=== PATIENT | female | born 1965 | race African-American/Black ===

== ENCOUNTER 2017-02-06 09:45 | Day surgery (SDC) | payer BC ==
--- NOTE | 2017-02-06 10:25 | PCM.PREANE ---
Preanesthetic Assessment - Anesthesia/Transfusion/Family Hx Anesthesia History: Prior Anesthesia Without Reaction Family History of Anesthesia Reaction: No Transfusion History: Prior Transfusion Without Reaction Intubation History: Unknown - Review of Systems General: No Symptoms Cardiovascular: No Symptoms Gastrointestinal: No symptoms Neurological: No Symptoms Other: Reports: None - Physical Assessment Height: 1.6 m Weight: 80.739 kg ASA Class: 2 Mental Status: Alert & Oriented x3 Airway Class: Mallampati = 2 Dentition: Reports: Normal Dentition Thyro-Mental Finger Breadths: 3 Mouth Opening Finger Breadths: 3 ROM/Head Extension: Full Lungs: Clear to auscultation, Normal respiratory effort Cardiovascular: Regular Rate, Regular Rhythm - Lab Values: Laboratory Last Values WBC 7.71 K/uL (4.0-11.0) 02/06/17 10:12 RBC 4.29 M/uL (4.30-5.90) L 02/06/17 10:12 Hgb 13.0 g/dL (12.0-16.0) 02/06/17 10:12 Hct 38.7 % (36.0-46.0) 02/06/17 10:12 MCV 90.2 fL (80.0-98.0) 02/06/17 10:12 MCH 30.3 pg (27.0-32.0) 02/06/17 10:12 MCHC 33.6 g/dL (31.0-37.0) 02/06/17 10:12 RDW Std Deviation 44.4 fl (28.0-62.0) 02/06/17 10:12 RDW Coeff of Chaz 14 % (11.0-15.0) 02/06/17 10:12 Plt Count 296 K/uL (150-400) 02/06/17 10:12 MPV 10.00 fL (7.40-12.00) 02/06/17 10:12 Neut % (Auto) 45.3 % (48.0-80.0) L 02/06/17 10:12 Lymph % (Auto) 48.1 % (16.0-40.0) H 02/06/17 10:12 [place] % (Auto) 4.2 % (0.0-15.0) 02/06/17 10:12 Eos % (Auto) 1.9 % (0.0-7.0) 02/06/17 10:12 Baso % (Auto) 0.5 % (0.0-1.5) 02/06/17 10:12 Neut # (Auto) 3.5 K/uL (1.4-5.7) 02/06/17 10:12 Lymph # (Auto) 3.7 K/uL (0.6-2.4) H 02/06/17 10:12 [place] # (Auto) 0.3 K/uL (0.0-0.8) 02/06/17 10:12 Eos # (Auto) 0.2 K/uL (0.0-0.7) 02/06/17 10:12 Baso # (Auto) 0.0 K/uL (0.0-0.1) 02/06/17 10:12 Nucleated RBC % 0.0 /100WBC 02/06/17 10:12 Nucleated RBCs # 0 K/uL 02/06/17 10:12 - Allergies Allergies/Adverse Reactions: Allergies Allergy/AdvReac Type Severity Reaction Status Date / Time No Known Allergies Allergy Verified 10/09/14 13:10 - Blood Blood Available: No - Anesthesia Plan Pre-Op Medication Ordered: None - Acknowledgements Anesthesia Type Planned: General Anesthesia Pt an Appropriate Candidate for the Planned Anesthesia: Yes Alternatives and Risks of Anesthesia Discussed w Pt/Guardian: Yes Pt/Guardian Understands and Agrees with Anesthesia Plan: Yes PreAnesthesia Questionnaire HEENT History: Reports: Other (See Below) Other HEENT History: wears glasses Cardiovascular History: Reports: Hypertension Gastrointestinal History: Reports: None Genitourinary History: Reports: None 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 , Psychiatric History: Reports: Depression Endocrine/Metabolic History: Reports: Obesity/BMI 30+ Hematologic History: Reports: Blood Transfusion(s) Other Hematologic History: had blood transfusion prior to hysterectomy - Past Surgical History Head Surgeries/Procedures: Reports: None GI Surgical History: Reports: Cholecystectomy Female Surgical History: Reports: D&C, Hysterectomy, Tubal Ligation Other Female Surgeries/Procedures: laparoscopy for ectopic - SUBSTANCE USE Smoking Status *Q: Never Smoker Second Hand Smoke Exposure: No Days Per Week of Alcohol Use: 0 Recreational Drug Use History: No - HOME MEDS Home Medications: Home Meds amLODIPine [Norvasc] 5 mg PO BEDTIME 02/12/15 [History]
[2017-02-06] MEDS ORDERED: Ondansetron 4 MG/2 ML SDV ONE (10:27)
[2017-02-06] MEDS ORDERED: Midazolam 1 MG/ML 2 ML SDV ONE (10:27)
[2017-02-06] MEDS ORDERED: Propofol 200 MG/20 ML SDV ONE (10:27)
[2017-02-06] MEDS ORDERED: fentaNYL 250 MCG/5 ML SDV ONE (10:28)
[2017-02-06] MEDS ORDERED: Dexamethasone 4 MG/ML 5 ML MDV ONE (11:15)
[2017-02-06] MEDS ORDERED: fentaNYL 100 MCG/2 ML SDV IVPUSH PRN (11:32)
[2017-02-06] MEDS ORDERED: Ketorolac 30 MG/ML SDV ONE (11:32)
[2017-02-06] MEDS ORDERED: ePHEDrine 50 MG/ML SDV ONE (11:39)
[2017-02-06] MEDS ORDERED: Acetaminophen/oxyCODONE 325-5 MG Tab PO PRN (12:09)
--- NOTE | 2017-02-06 12:19 | PCM.OPNOTE ---
- General Post-Op/Procedure Note Date of Surgery/Procedure: 02/06/17 Operative Procedure(s): Left Labia minora reduction Pre Op Diagnosis: Hypertrophy of left labia minora Post-Op Diagnosis: Same Anesthesia Technique: General LMA Primary Surgeon: Waleska Casey Pathology: Excised Labia minor skin EBL in mLs: 5 Complications: None Condition: Good
[2017-02-06] MEDS ORDERED: Bupivacaine 0.25% 10 ML SDV ONE (12:37)
[2017-02-06 13:45] VITALS: BP 106/62
--- NOTE | 2017-02-06 14:01 | PCM48HPAN ---
Post Anesthesia Note - EVALUATION WITHIN 48HRS OF ANESTHETIC Vital Signs in Normal Range: Yes Patient Participated in Evaluation: Yes Respiratory Function Stable: Yes Airway Patent: Yes Cardiovascular Function Stable: Yes Hydration Status Stable: Yes Pain Control Satisfactory: Yes Nausea and Vomiting Control Satisfactory: Yes Mental Status Recovered: Yes
--- NOTE | 2017-02-06 23:48 | OR ---
SURGEON: Waleska Casey MD DATE OF PROCEDURE: 02/06/2017 PREOPERATIVE DIAGNOSIS: Left labia hypertrophy. POSTOPERATIVE DIAGNOSIS: Left labia hypertrophy. PROCEDURE: Reduction of left labium minora. ANESTHESIA: General, LMA. ESTIMATED BLOOD LOSS: 5 mL. IV FLUIDS: 1200 mL. COMPLICATIONS: None. FINDINGS: Hypertrophied left labia minora. BRIEF HISTORY: The patient is a 51-year-old, postmenopausal lady who at her routine annual examination complained of having of vulvar "tag" which had been present for a while but in recent times had become more irritating and catching on her underwear and she would like it removed. Examination did reveal hypertrophied left labia minora which was hanging at least 2 cm down compared to her right labial minora. The patient was counseled that this would have to be done under anesthesia , risks of bleeding, infection, and then also the cosmetics, bearing in mind that that labia would not look the same as the right side. The patient consented to proceed. PROCEDURE DETAILS: The patient was taken to the operating room, where she was placed in the dorsal supine position and SCDs in place. Induction of general anesthesia was performed without difficulty. After appropriate level of anesthesia was reached, she was then placed in dorsal lithotomy position, prepped and draped in the normal sterile fashion for vaginal surgery. Appropriate time-out was held. Examination under anesthesia confirmed the above findings and the area that was going to be excised off the left labia was then marked out with a marking pen making sure that it was approximately at the same level as the right labia minora. This area was then excised in a elliptical fashion and the redundant skin removed and sent off to pathology. The area was then closed with multiple interrupted stitches using 3-0 Vicryl sutures. The area was hemostatic post repair. It was then infiltrated with 0.25% Marcaine. The area was covered Surgicel, acting as a barrier dressing for the next 24 hours. The patient tolerated the procedure well. Sponge, instrument, and needle counts were correct at the end of the procedure. She was taken to the recovery room in stable condition. YONNY / SULEMA /[id number] STACI
== END 2017-02-06 14:03 | disposition home or self-care (01) ==
LOC: MW.SDS 09:45
PROVIDERS: ATTEND Obstetrics & Gynecology
DX: N90.60 Unspecified hypertrophy of vulva (principal); N95.8 Other specified menopausal and perimenopausal disorders; I10 Essential (primary) hypertension; Z98.51 Tubal ligation status; Z98.890 Other specified postprocedural states; Z79.899 Other long term (current) drug therapy
CPT/HCPCS: 36415; 56620; 85025; J1100; J1885; J2250; J2405; J3010; 00940; 88305; J2704

== ENCOUNTER 2017-09-18 09:44 | Emergency (ER) | payer BC ==
[2017-09-18] MEDS ORDERED: Acetaminophen 325 MG Tab PO ONE (09:48)
[2017-09-18] MEDS ORDERED: Sodium Chloride 0.9% 1,000 ML IV ONE ×2 (09:48→12:13)
--- NOTE | 2017-09-18 09:51 | EDM.PDOC ---
ED HPI GENERAL MEDICAL PROBLEM - General Stated Complaint: AMBULANCE Time Seen by Provider: 09/18/17 09:47 - History of Present Illness INITIAL COMMENTS - FREE TEXT/NARRATIVE: HISTORY AND PHYSICAL: History of present illness: Patient 51-year-old black female with history of hypertension who states she's been ill for approximately 1 week with viral type symptoms including cough decreased appetite poor oral intake and generalized weakness that has progressed today to the point prompted a call to ambulance due to the profound weakness. She denies shortness of breath or chest pain Review of systems: As per history of present illness and below otherwise all systems reviewed and negative. Past medical history: As per history of present illness and as reviewed below otherwise noncontributory. Surgical history: As per history of present illness and as reviewed below otherwise noncontributory. Social history: No reported history of drug or alcohol abuse. Family history: As per history of present illness and as reviewed below otherwise noncontributory. Physical exam: HEENT: Atraumatic, normocephalic, pupils reactive, negative for conjunctival pallor or scleral icterus, mucous membranes dry, throat clear, neck supple, nontender, trachea midline. Lungs: Clear to auscultation, breath sounds equal bilaterally, chest nontender. Heart: S1S2, regular, negative for clicks, rubs, or JVD. Abdomen: Soft, nondistended, nontender. Negative for masses or hepatosplenomegaly. Negative for costovertebral tenderness. Pelvis: Stable nontender. Genitourinary: Deferred. Rectal: Deferred. Extremities: Atraumatic, negative for cords or calf pain. Neurovascular unremarkable. Neuro: Awake, alert, oriented. Cranial nerves II through XII unremarkable. Cerebellum unremarkable. Motor and sensory unremarkable throughout. Exam nonfocal. Diagnostics: CBC CMP troponin chest x-ray EKG influenza screen UA urine culture blood culture 2 rapid strep Therapeutics: saline 1 L bolus Tylenol 1 g by mouth Impression: #1 Acute febrile illness Definitive disposition and diagnosis as appropriate pending reevaluation and review of above. 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 , Psychiatric History: Reports: Depression Endocrine/Metabolic History: Reports: Obesity/BMI 30+ Hematologic History: Reports: Blood Transfusion(s) Other Hematologic History: had blood transfusion prior to hysterectomy - Past Surgical History Head Surgeries/Procedures: Reports: None GI Surgical History: Reports: Cholecystectomy Female Surgical History: Reports: D&C, Hysterectomy, Tubal Ligation Other Female Surgeries/Procedures: laparoscopy for ectopic Social & Family History - Tobacco Use Smoking Status *Q: Never Smoker Second Hand Smoke Exposure: No - Alcohol Use Days Per Week of Alcohol Use: 0 - Recreational Drug Use Recreational Drug Use: No ED ROS GENERAL - Review of Systems Review Of Systems: ROS reveals no pertinent complaints other than HPI. ED EXAM, GENERAL - Physical Exam Exam: See Below (See dictation) Course - Vital Signs Last Recorded V/S: Last Vital Signs Temp 38.4 C H 09/18/17 11:26 Pulse 116 H 09/18/17 09:58 Resp 20 09/18/17 09:58 BP 142/83 H 09/18/17 09:58 Pulse Ox 96 09/18/17 09:58 - Orders/Labs/Meds Orders: Active Orders 24 hr Category Date Time Status EKG Documentation Completion [RC] STAT Care 09/18/17 09:48 Active Pulse Oximetry [RC] ASDIRECTED Care 09/18/17 09:48 Active Chest 2V [CR] Stat Exams 09/18/17 09:48 Taken CULTURE BLOOD [BC] Stat Lab 09/18/17 10:00 Received CULTURE BLOOD [BC] Stat Lab 09/18/17 10:00 Received CULTURE STREP A CONFIRMATION [RM] Stat Lab 09/18/17 10:00 Results CULTURE URINE [RM] Stat Lab 09/18/17 11:51 Received STREP SCRN A RAPID W CULT CONF [RM] Stat Lab 09/18/17 10:00 Results Sodium Chloride 0.9% [Normal Saline] 1,000 ml Med 09/18/17 12:13 Active IV .Bolus Blood Culture x2 Reflex Set [OM.PC] Stat Oth 09/18/17 09:48 Ordered Medication Orders Sodium Chloride (Normal Saline) 1,000 mls @ 999 mls/hr IV .Bolus ONE Stop: 09/18/17 13:13 Last Admin: 09/18/17 12:14 Dose: 999 mls/hr Labs: Laboratory Tests 09/18/17 09/18/17 09/18/17 Range/Units 10:00 10:00 11:51 WBC 6.82 (4.0-11.0) K/uL RBC 4.36 (4.30-5.90) M/uL Hgb 13.0 (12.0-16.0) g/dL Hct 39.3 (36.0-46.0) % MCV 90.1 (80.0-98.0) fL MCH 29.8 (27.0-32.0) pg MCHC 33.1 (31.0-37.0) g/dL RDW Std Deviation 45.1 (28.0-62.0) fl RDW Coeff of Chaz 14 (11.0-15.0) % Plt Count 259 (150-400) K/uL MPV 10.20 (7.40-12.00) fL Neut % (Auto) 68.6 (48.0-80.0) % Lymph % (Auto) 22.0 (16.0-40.0) % [place] % (Auto) 9.1 (0.0-15.0) % Eos % (Auto) 0.0 (0.0-7.0) % Baso % (Auto) 0.3 (0.0-1.5) % Neut # (Auto) 4.7 (1.4-5.7) K/uL Lymph # (Auto) 1.5 (0.6-2.4) K/uL [place] # (Auto) 0.6 (0.0-0.8) K/uL Eos # (Auto) 0.0 (0.0-0.7) K/uL Baso # (Auto) 0.0 (0.0-0.1) K/uL Nucleated RBC % 0.0 /100WBC Nucleated RBCs # 0 K/uL Sodium 140 (136-146) mmol/L Potassium 3.6 (3.5-5.1) mmol/L Chloride 103 (98-110) mmol/L Carbon Dioxide 25 (21-31) mmol/L BUN 9 (6.0-23.0) mg/dL Creatinine 0.8 (0.6-1.5) mg/dL Est Cr Clr Drug Dosing 74.86 mL/min Estimated GFR (MDRD) > 60.0 ml/min Glucose 112 H (60-110) mg/dL Calcium 9.2 (8.8-10.8) mg/dL Total Bilirubin 0.7 (0.1-1.5) mg/dL AST 43 H (5-40) IU/L ALT 40 (8-54) IU/L Alkaline Phosphatase 103 (40-150) Troponin I < 0.10 (0.0-0.29) NG/ML Total Protein 8.0 (6.0-8.0) g/dL Albumin 4.1 (3.5-5.0) g/dL Globulin 3.9 H (2.0-3.5) g/dL Albumin/Globulin Ratio 1.1 L (1.3-2.8) Urine Color YELLOW Urine Appearance CLEAR Urine pH 6.5 (5.0-8.0) Ur Specific [place] 1.010 (1.001-1.035) Urine Protein NEGATIVE (NEGATIVE) mg/dL Urine Glucose (UA) NEGATIVE (NEGATIVE) mg/dL Urine Ketones NEGATIVE (NEGATIVE) mg/dL Urine Occult Blood NEGATIVE (NEGATIVE) Urine Nitrite NEGATIVE (NEGATIVE) Urine Bilirubin NEGATIVE (NEGATIVE) Urine Urobilinogen 1.0 (<2.0) EU/dL Ur Leukocyte Esterase NEGATIVE (NEGATIVE) Urine RBC 0-2 (0-2/HPF) Urine WBC 0-1 (0-5/HPF) Ur Epithelial Cells FEW (NONE-FEW) Urine Bacteria FEW (NEGATIVE) Meds: Medications Generic Name Dose Route Start Last Admin Trade Name Freq PRN Reason Stop Dose Admin Sodium Chloride 1,000 mls @ 999 mls/hr 09/18/17 12:13 09/18/17 12:14 Normal Saline IV 09/18/17 13:13 999 mls/hr .Bolus ONE Administration Discontinued Medications Generic Name Dose Route Start Last Admin Trade Name Freq PRN Reason Stop Dose Admin Acetaminophen 1,000 mg 09/18/17 09:48 09/18/17 10:09 Tylenol PO 09/18/17 09:49 Not Given NOW ONE Acetaminophen Confirm 09/18/17 10:02 09/18/17 10:07 Tylenol Extra Strength Administered 09/18/17 10:03 Not Given Dose 1,000 mg .ROUTE .STK-MED ONE Acetaminophen 1,000 mg 09/18/17 10:07 09/18/17 10:08 Tylenol Extra Strength PO 09/18/17 10:08 1,000 mg ONETIME ONE Administration Sodium Chloride 1,000 mls @ 999 mls/hr 09/18/17 09:48 09/18/17 10:11 Normal Saline IV 09/18/17 10:48 999 mls/hr STAT ONE Administration Ibuprofen 400 mg 09/18/17 11:22 09/18/17 11:26 Motrin PO 09/18/17 11:23 400 mg ONETIME ONE Administration Departure - Departure Time of Disposition: 12:30 Disposition: Home, Self-Care 01 Condition: Good Clinical Impression: Fever, Pneumonia - Discharge Information Additional Instructions: The following information is given to patients seen in the emergency department who are being discharged to home. This information is to outline your options for follow-up care. We provide all patients seen in our emergency department with a follow-up referral. The need for follow-up, as well as the timing and circumstances, are variable depending upon the specifics of your emergency department visit. If you don't have a primary care physician on staff, we will provide you with a referral. We always advise you to contact your personal physician following an emergency department visit to inform them of the circumstance of the visit and for follow-up with them and/or the need for any referrals to a consulting specialist. The emergency department will also refer you to a specialist when appropriate. This referral assures that you have the opportunity for followup care with a specialist. All of these measure are taken in an effort to provide you with optimal care, which includes your followup. Under all circumstances we always encourage you to contact your private physician who remains a resource for coordinating your care. When calling for followup care, please make the office aware that this follow-up is from your recent emergency room visit. If for any reason you are refused follow-up, please contact the [facility] emergency department at and asked to speak to the emergency department charge nurse. Levaquin as prescribed push fluids Motrin/Tylenol as directed follow-up primary medical doctor one to 2 days return as needed as discussed - My Orders Last 24 Hours: My Active Orders 09/18/17 09:48 EKG Documentation Completion [RC] STAT Pulse Oximetry [RC] ASDIRECTED Chest 2V [CR] Stat Blood Culture x2 Reflex Set [OM.PC] Stat 09/18/17 10:00 CULTURE BLOOD [BC] Stat CULTURE BLOOD [BC] Stat CULTURE STREP A CONFIRMATION [RM] Stat STREP SCRN A RAPID W CULT CONF [RM] Stat 09/18/17 11:51 CULTURE URINE [RM] Stat 09/18/17 12:13 Sodium Chloride 0.9% [Normal Saline] 1,000 ml IV .Bolus - Assessment/Plan Last 24 Hours: My Active Orders 09/18/17 09:48 EKG Documentation Completion [RC] STAT Pulse Oximetry [RC] ASDIRECTED Chest 2V [CR] Stat Blood Culture x2 Reflex Set [OM.PC] Stat 09/18/17 10:00 CULTURE BLOOD [BC] Stat CULTURE BLOOD [BC] Stat CULTURE STREP A CONFIRMATION [RM] Stat STREP SCRN A RAPID W CULT CONF [RM] Stat 09/18/17 11:51 CULTURE URINE [RM] Stat 09/18/17 12:13 Sodium Chloride 0.9% [Normal Saline] 1,000 ml IV .Bolus
[2017-09-18] MEDS ORDERED: Acetaminophen 500 MG Tab ONE (10:02)
[2017-09-18] MEDS ORDERED: Acetaminophen 500 MG Tab PO ONE (10:07)
[2017-09-18 10:36] LABS: CHLORIDE,CL 103 mmol/L (98-110); SODIUM,NA 140 mmol/L (136-146)
[2017-09-18] MEDS ORDERED: Ibuprofen 400 MG Tab PO ONE (11:22)
[2017-09-18] MEDS ORDERED: Levofloxacin/Dextrose 5%-Water 750 MG in Premix Bag 1 BAG IV ONE (12:30)
[2017-09-18 14:18] VITALS: BP 124/70
--- NOTE | 2017-09-19 16:22 | CR ---
EXAM DATE: 09/18/17 PATIENT'S AGE: 51 Patient: VIJAYA KHAN Facility: [place], [place] Site . Site : [id number] Study: XRay Chest [id number]/[id number] 11:04:00 AM Ordering Physician: Doctor Villegas Final Report: INDICATION: Chest pain; shortness of breath. Comparison: None. Technique: Two-view chest. Findings: Normal size cardiac silhouette. Atelectatic changes and / or infiltrates medial segment right middle lobe. No pneumothorax or pleural effusion. No evidence of CHF. Impression: Atelectatic changes and / or infiltrates right middle lobe medial segment. 1. No other abnormalities are identified. Dictated by Jewels Last MD @ Sep 18 2017 11:30AM (Electronic Signature) Report Signed by Proxy. STAIC
== END 2017-09-18 14:15 | disposition home or self-care (01) ==
LOC: MW.ED 09:44
DX: J18.9 Pneumonia, unspecified organism (principal); I10 Essential (primary) hypertension; E66.9 Obesity, unspecified
CPT/HCPCS: 36415; 71020; 80053; 81001; 84484; 85025; 87040; 87081; 87086; 87804; 87880; 93005; 96361; 96365; 96366; 99285; A9270; J1956; J7040; 99283